=== PATIENT | female | born 1925 | race Caucasian/White ===

== ENCOUNTER 2016-09-12 09:32 | Day surgery (SDC) | payer OTHER ==
[2016-09-07 15:27] VITALS: BMI 24.2
[2016-09-12] MEDS ORDERED: PROPOFOL 20 ML ONE (09:39)
[2016-09-12 12:35] VITALS: TEMP 97.5
[2016-09-12 12:38] VITALS: BP 125/69; PULSE 57
--- NOTE | 2016-09-14 16:11 | PATH ---
Surgical Pathology Report Patient Name: DANILO LIVE [facility]. Rec. #: [id number] /Age/Gender: 1925 (Age: 89) / F Account: [id number] Location: [facility] AMBUL[facility]ORY Taken: 09/12/2016 Received: 09/12/2016 Reported: 09/14/2016 Physicians: Graham Mane M.D. Specimen(s) Received A: BX DUODENUM B: BX ANTRUM Clinical History GERD Abdominal pain, pyloric channel ulcer Final Diagnosis A. DUODENUM, BIOPSY: DUODENAL MUCOSA WITH NO PATHOLOGIC FINDINGS. B. ANTRUM, BIOPSY: MODERATE CHRONIC GASTRITIS. IMMUNOSTAIN IS NEGATIVE FOR H. PYLORI ORGANISMS. Electronically Signed Renay Trimble M.D. Gross Description A. Received in formalin, labeled "duodenum" is a badillo, irregular portion of soft tissue measuring 0.5 cm. in greatest dimension. The specimen is submitted in toto in one cassette. B. Received in formalin, labeled "antrum" are 2 badillo, irregular portions of soft tissue measuring 0.5 and 0.7 cm. in greatest dimension. The specimens are submitted in toto in one cassette. 09/12/201609/12/2016
== END 2016-09-12 12:20 | disposition home or self-care (01) ==
LOC: FASU 09:32
PROVIDERS: ATTEND Internal Medicine Gastroenterology
PROC: 0DB98ZX Excision of Duodenum, Via Natural or Artificial Opening Endoscopic, Diagnostic (ICD-10-PCS; principal; 2016-09-12 10:59)
PROC: 0DB68ZX Excision of Stomach, Via Natural or Artificial Opening Endoscopic, Diagnostic (ICD-10-PCS; 2016-09-12 10:59)
DX: K29.50 Unspecified chronic gastritis without bleeding (principal); K25.9 Gastric ulcer, unspecified as acute or chronic, without hemorrhage or perforation; K44.9 Diaphragmatic hernia without obstruction or gangrene
CPT/HCPCS: 88305-TC; 88342-TC

== ENCOUNTER 2016-10-19 10:23 | Day surgery (SDC) | payer OTHER ==
[2016-10-14 13:57] VITALS: BMI 24.2
[2016-10-19] MEDS ORDERED: PROPOFOL 20 ML ONE (11:12)
[2016-10-19] MEDS ORDERED: BUPIVACAINE HCL/PF 2.5 MG/ML - 30 ML VIAL IJ ONE (11:13)
[2016-10-19] MEDS ORDERED: LIDOCAINE HCL 2% (50ML VIAL) INF ONE (11:35)
[2016-10-19 12:30] VITALS: TEMP 97.7
[2016-10-19 13:09] VITALS: BP 116/62; PULSE 74
[2016-10-19] MEDS ORDERED: ONDANSETRON 4 MG/2 ML VIAL IVPUSH PRN (13:41)
[2016-10-19] MEDS ORDERED: ACETAMINOPHEN 325 MG TABLET (FP) PO PRN (13:41)
[2016-10-19] MEDS ORDERED: LACTATED RINGERS SOLUTION 1,000 ML IV SCH (13:45)
--- NOTE | 2016-10-20 16:11 | PATH ---
Surgical Pathology Report Patient Name: DANILO LIVE [facility]. Rec. #: [id number] /Age/Gender: 1925 (Age: 89) / F Account: [id number] Location: [facility] AM[facility] Taken: 10/19/2016 Received: 10/19/2016 Reported: 10/20/2016 Physicians: Sumit Ochoa M.D. Specimen(s) Received LEFT RING FINGER MASS Clinical History Left ring finger mass Final Diagnosis RING FINGER, LEFT, MASS, EXCISION: GANGLION CYST. Electronically Signed Renay Trimble M.D. Gross Description Received in formalin labeled "left ring finger mass," is a 0.9 x 0.5 x 0.3 cm badillo, irregular portion of soft tissue. The specimen is submitted in toto in one cassette. 10/19/201610/19/2016
--- NOTE | 2016-10-21 08:51 | OP ---
DATE OF OPERATION: 10/19/2016 PREOPERATIVE DIAGNOSIS: Left ring-finger mass. POSTOPERATIVE DIAGNOSIS: Left ring-finger mass. OPERATIVE PROCEDURE: Left ring-finger mass excision. SURGEON: Sumit Ochoa MD ANESTHESIA: Local with sedation. COMPLICATIONS: None. ESTIMATED BLOOD LOSS: Minimal. INDICATIONS: The patient is an 89-year-old female with the above findings, indicated for operative treatment. The risks, benefits, and alternatives were discussed with the patient at length, and proper informed consent was obtained. PROCEDURE: After proper identification of the patient and the correct operative site, the patient was brought to the operating room and placed supine on the operating table. All prominences were well padded. Sedation was given by the anesthesiologist. Local anesthesia was given with 2% lidocaine. Left upper extremity was prepped and draped in the usual sterile fashion. Well-padded tourniquet was placed with a sterile prep. Esmarch bandage used to exsanguinate the left upper extremity. Tourniquet inflated to 250 mmHg. A longitudinal incision was made over the patients mass, which was dorsal on the proximal phalangeal segment. Incision was taken sharply to the skin with blunt and sharp dissection through the subcutaneous tissues. The mass was found to be a cystic structure emanating from the extensor sheath. This was excised and whole sent for pathological evaluation. Wound was irrigated with saline and repaired with 5-0 nylon sutures. Sterile dressings were applied. Patient was reversed from anesthesia and brought to the recovery room in stable condition. She tolerated the procedure well. Gulshan [id number]
== END 2016-10-19 13:13 | disposition home or self-care (01) ==
LOC: FASU 10:23
PROVIDERS: ATTEND Orthopaedic Surgery Hand Surgery
PROC: 0LB80ZZ Excision of Left Hand Tendon, Open Approach (ICD-10-PCS; principal; 2016-10-19 11:26)
DX: M67.442 Ganglion, left hand (principal)
CPT/HCPCS: 88305-TC

== ENCOUNTER 2016-11-21 08:49 | Day surgery (SDC) | payer OTHER ==
[2016-11-16 16:15] VITALS: BMI 24.2
[2016-11-21] MEDS ORDERED: PROPOFOL 20 ML ONE (09:24)
[2016-11-21 11:29] VITALS: TEMP 98.1
[2016-11-21 11:47] VITALS: BP 112/65; PULSE 69
== END 2016-11-21 11:50 | disposition home or self-care (01) ==
LOC: FASU-ENDO 08:49
PROVIDERS: ATTEND Internal Medicine Gastroenterology
PROC: 0DJD8ZZ Inspection of Lower Intestinal Tract, Via Natural or Artificial Opening Endoscopic (ICD-10-PCS; principal; 2016-11-21 10:47)
DX: K57.30 Diverticulosis of large intestine without perforation or abscess without bleeding (principal); R77.9 Abnormality of plasma protein, unspecified; R79.0 Abnormal level of blood mineral